=== PATIENT | female | born 1955 | race Caucasian/White ===

== ENCOUNTER 2017-11-02 09:18 | Inpatient (IN) | payer OTHER ==
[~2017-11-02] VITALS: Ht 165.1 cm; Wt 88.9 kg
--- NOTE | ~2017-11-02 | EKG ---
[address] [address] ELECTROCARDIOGRAM REPORT Name: EVELIN EDEN Room #: 351-P ADM IN M.R.#: [id number] Admission: 11/02/17 Attend Phys: William Fish MD Discharge: Date of : 51 Report #: [id number] THIS REPORT FOR: //name// [facility] ED Test Date: 2017-11-02 Test Time: 10:24:08 Pat Name: EVELIN EDEN Department: Room: [employer] Gender: F Senior Underwriter: LENNY : 1955 Requested By: Chelsea De La O Order Number: [id number] MD: Kin Rodriguez Measurements Intervals [place] Rate: 88 P: 11 VT: 143 QRS: -39 QRSD: 100 T: 0 QT: 397 QTc: 481 Interpretive Statements Sinus rhythm RSR' in V1 or V2, right VCD No previous ECG available for comparison Electronically Signed On 11-03-2017 10:12:56 CDT by Kin Rodriguez [email or web address] <ELECTRONICALLY SIGNED> By: Kin Rodriguez MD 11/03/17 1012 1024 [facility] MD EMIR Stallings
--- NOTE | ~2017-11-02 | EKG ---
[address] [email or web address] [address] ELECTROCARDIOGRAM REPORT Name: EVELIN EDEN Room #: 351-P ADM IN M.R.#: [id number] Admission: 11/02/17 Attend Phys: William Fish MD Discharge: Date of : 51 Report #: [id number] THIS REPORT FOR: //name// [facility] ED Test Date: 2017-11-02 Test Time: 10:23:21 Pat Name: EVELIN EDEN Department: Room: [facility] Gender: F Spool Winder: LENNY : 1955 Requested By: Chelsea De La O Order Number: [id number] MD: Kin Rodriguez Measurements Intervals [place] Rate: 88 P: 0 [place]: 71 QRS: -43 QRSD: 97 T: -37 QT: 396 QTc: 480 Interpretive Statements Sinus rhythm Short [place] interval Abnormal R-wave progression, late transition Nonspecific ST segment abnormalities No previous ECG available for comparison Electronically Signed On 11-03-2017 10:12:36 CDT by Kin Rodriguez [email or web address] <ELECTRONICALLY SIGNED> By: Kin Rodriguez MD 11/03/17 1012 1022 102 Kin Rodriguez MD /BARBARA
--- NOTE | ~2017-11-02 | HC ---
[facility] [place] [address] CONSULTATION Name: EVELIN EDEN Room #: 351-P ADM IN M.R.#: [id number] Admission: 11/02/17 Attend Phys: William Fish MD Discharge: Date of : 51 Report #: [id number] THIS REPORT FOR: //name// CC: FAM physician/PCP William Fish DATE OF SERVICE: 11/03/2017 ATTENDING PHYSICIAN: Dr. Fish. REASON FOR CONSULTATION: Gram-negative septicemia, complicated urinary tract source with obstructive uropathy due to renal stone. HISTORY OF PRESENT ILLNESS: Chart reviewed, the patient examined. This is a 62-year-old without significant medical history who was found markedly encephalopathic. The patient was walking in her front yard when she reported of a fall and some incontinence of bladder. Evaluation noted urinalysis with marked pyuria. Imaging studies showed obstructing x 7 mm UVJ stone with some moderate left ureteral ectasis and pelvocaliectasis. Blood cultures now with growth of gram-negative rods. She does have an elevated procalcitonin of 4.58 and her initial lactic acid was 1.2. She is markedly better today. She still has some residual pain. She described discomfort associated interestingly more right-sided, but that has markedly improved, perhaps she subsequently passed the stone. She was empirically started on ceftriaxone and vancomycin and she was continued on ceftriaxone. ALLERGIES: None. CURRENT MEDICATIONS: Include ceftriaxone, enoxaparin, labetalol, amlodipine, allopurinol. PAST MEDICAL HISTORY: Otherwise, unremarkable. SOCIAL HISTORY: Former excess ethanol. She does smoke 2 packs a day, [id number] history. No illicit drug use. FAMILY HISTORY: Noncontributory. REVIEW OF SYSTEMS: As above. Denies any significant pulmonary-related complaints at this point. PHYSICAL EXAMINATION: GENERAL: She appears fairly well nourished, mild to moderate distress. VITAL SIGNS: Temperature 97.7 with a T-max of 100.8, pulse 92, respirations 22, blood pressure 154/95. SKIN: Warm, dry, no rashes. [facility] [address] [place] [address] CONSULTATION Name: EVELIN EDEN Room #: 351-P [facility] IN M.R.#: [id number] Admission: 11/02/17 Attend Phys: William Fish MD Discharge: Date of : 51 Report #: [id number] HEENT: Unremarkable. NECK: Supple. LUNGS: Generally clear to auscultation. Somewhat diminished. HEART: Regular. Borderline tachycardic. ABDOMEN: Obese, soft, slightly distended initially, no peritoneal signs. I do not appreciate any CVA tenderness. GENITOURINARY AND RECTAL: Deferred. LABORATORY DATA: Initial electrolytes, sodium 138, potassium 3.3, chloride 103, bicarbonate is 24, anion gap of 11, BUN and creatinine 29 and 1.9, glucose of 169, repeat this morning creatinine of 1.5. Lactic acid 1.2 initially. TSH of 1.198. CBC: White count of 25.9 initially, H and H 12.7 and 38.0, platelets 280, repeat was white count of 18.3. Blood culture with growth of gram-negative juan a. Urine culture is pending. CT of the pelvis as described above, a 5.5 x 7 mm obstructing left UVJ stone, anterior superior bladder wall thickening. There is some diverticulosis without evidence of diverticulitis. ASSESSMENT AND PLAN: Gram-negative septicemia in the setting of complicated urinary tract infection due to obstructive uropathy and a stone. At this point, symptomatically she has improved. It is not clear whether she has passed the stone or not as well as elevated white count, which may not be surprising. We will give a single dose of gentamicin pending the results of the identification of the gram-negative. I would suspect the urine culture will have similar. Note that repeat imaging is pending and may need Urology evaluation. <ELECTRONICALLY SIGNED> By: Deo Mendez MD 11/03/17 1711 0920 [id number] Deo Mendez MD /nt
[2017-11-02 09:18] VITALS: BP 145/84
[2017-11-02] MEDS ORDERED: GABAPENTIN 100100 MG PO (09:46)
[2017-11-02 10:04] LABS: HEMOGLOBIN 12.7 gm/dL (12.0-15.0); MCH 31.2 pg (26.0-34.0); MCHC 33.5 g/dL (28.0-37.0); MCV 93.2 fL (80.0-100.0); PLATELET COUNT 280 thou/uL (150-400); RBC 4.08 mil/uL (4.20-5.00); RDW 13.7 % (10.5-14.5); WBC 25.9 thou/uL (4.0-11.0)
[2017-11-02 10:06] LABS: ANION GAP 11 mmol/L (7-16); BUN 29 mg/dL (7-18); CALCIUM 9.5 mg/dL (8.5-10.1); CHLORIDE 103 mmol/L (98-107); CO2 24 mmol/L (21-32); CREATININE 1.9 mg/dL (0.6-1.0); GLUCOSE 169 mg/dL (74-106); POTASSIUM 3.3 mmol/L (3.5-5.1); SODIUM 138 mmol/L (136-145)
[2017-11-02 10:14] LABS: ALBUMIN 2.7 g/dL (3.4-5.0); SGOT 34 U/L (15-37); SGPT 28 U/L (30-65); TOTAL BILIRUBIN 0.4 mg/dL (<0.1-1.0); TOTAL PROTEIN 7.7 g/dL (6.4-8.2); TROPONIN-I <0.06 ng/mL (<0.06)
[2017-11-02 11:17] LABS: ABSOLUTE NEUTROPHILS 23.1 thou/uL (1.4-8.2)
[2017-11-02 11:49] LABS: URINE BILIRUBIN NEGATIVE (Negative); URINE BLOOD 2+ (Negative); URINE COLOR YELLOW; URINE GLUCOSE-RANDOM* NEGATIVE (Negative); URINE KETONES NEGATIVE (Negative); URINE NITRITE-REFLEX NEGATIVE (Negative); URINE PROTEIN (DIPSTICK) 2+ (Negative); URINE SPECIFIC GRAVITY 1.025 (1.005-1.035); URINE UROBILINOGEN 0.2 E.U./dl (0.2-1.0)
[2017-11-02 11:51] LABS: URINE CLARITY CLOUDY; URINE LEUKOCYTES-REFLEX 1+ (Negative)
[2017-11-02 12:01] LABS: AMP/METHAMP Negative (Negative); BARBITURATES Negative (Negative); BENZODIAZEPINES Negative (Negative); COCAINE Negative (Negative); METHADONE Negative (Negative); OPIATES Negative (Negative); PCP Negative (Negative)
[2017-11-02 12:21] LABS: SQUAMOUS 4-10 Moderate /LPF (0-3)
[2017-11-02 12:22] LABS: BACTERIA-REFLEX >30 Many /HPF (None Seen); CASTS None Seen /LPF (None Seen); CRYSTALS None Seen /LPF (None Seen); URINE RBC 0-2 Rare /HPF (0-2); URINE WBC-REFLEX >25 Many /HPF (0-5)
[2017-11-02 14:58] VITALS: BP 194/91
[2017-11-02 16:09] LABS: ALBUMIN 2.9 g/dL (3.4-5.0); TOTAL PROTEIN 6.9 g/dL (6.4-8.2)
[2017-11-02 18:22] VITALS: BP 186/92
[2017-11-02 18:28] VITALS: BP 197/109
[2017-11-02 19:10] VITALS: BP 192/106
[2017-11-02 23:59] VITALS: BP 157/75
[2017-11-03 04:20] VITALS: BP 169/76
[2017-11-03 06:07] LABS: HEMATOCRIT 37.7 % (37.0-47.0); HEMOGLOBIN 12.8 gm/dL (12.0-15.0); MCH 31.3 pg (26.0-34.0); MCHC 33.9 g/dL (28.0-37.0); MCV 92.5 fL (80.0-100.0); RBC 4.08 mil/uL (4.20-5.00); RDW 13.4 % (10.5-14.5); WBC 18.3 thou/uL (4.0-11.0)
[2017-11-03 06:24] LABS: CREATININE 1.5 mg/dL (0.6-1.0); MAGNESIUM 1.5 mg/dL (1.8-2.4)
[2017-11-03 08:00] VITALS: BP 154/95
[2017-11-03 12:00] VITALS: BP 138/78
[2017-11-03 16:00] VITALS: BP 149/87
[2017-11-03 19:40] VITALS: BP 163/97
[2017-11-04 05:27] VITALS: BP 149/82
[2017-11-04 06:32] LABS: HEMATOCRIT 37.9 % (37.0-47.0); HEMOGLOBIN 12.6 gm/dL (12.0-15.0); MCH 30.9 pg (26.0-34.0); MCHC 33.2 g/dL (28.0-37.0); MCV 93.2 fL (80.0-100.0); RBC 4.06 mil/uL (4.20-5.00); RDW 13.7 % (10.5-14.5); WBC 12.4 thou/uL (4.0-11.0)
[2017-11-04 06:43] LABS: CALCIUM 9.2 mg/dL (8.5-10.1); CREATININE 1.2 mg/dL (0.6-1.0); MAGNESIUM 1.8 mg/dL (1.8-2.4); POTASSIUM 3.6 mmol/L (3.5-5.1)
[2017-11-04 07:51] VITALS: BP 132/90
[2017-11-04 12:12] VITALS: BP 155/92
[2017-11-04 15:41] VITALS: BP 154/97
[2017-11-04 19:42] VITALS: BP 135/79
[2017-11-05 05:54] LABS: HEMATOCRIT 37.9 % (37.0-47.0); HEMOGLOBIN 12.7 gm/dL (12.0-15.0); MCHC 33.6 g/dL (28.0-37.0); MCV 92.2 fL (80.0-100.0); RBC 4.11 mil/uL (4.20-5.00); RDW 13.5 % (10.5-14.5); WBC 10.4 thou/uL (4.0-11.0)
[2017-11-05 06:16] LABS: CALCIUM 9.2 mg/dL (8.5-10.1); CREATININE 1.3 mg/dL (0.6-1.0); MAGNESIUM 1.7 mg/dL (1.8-2.4)
[2017-11-05 08:38] VITALS: BP 158/97
[2017-11-05] MEDS ORDERED: CEFUROXIME500 MG PO (09:43)
[2017-11-05] MEDS ORDERED: AMLODIPINE BESY10 MG PO (09:43)
[2017-11-05] MEDS ORDERED: MIRALAX17 GM PO (09:44)
[2017-11-05 10:23] VITALS: BP 158/97
== END 2017-11-05 11:33 | disposition home or self-care (01) | DRG 871 ==
LOC: ER 09:18 → EROBS 14:28 → 3W 14:28
PROVIDERS: Internal Medicine; Student in an Organized Health Care Education/Training Program
DX: A41.50 Gram-negative sepsis, unspecified (principal); G93.40 Encephalopathy, unspecified; N17.9 Acute kidney failure, unspecified; M62.82 Rhabdomyolysis; E46 Unspecified protein-calorie malnutrition; N12 Tubulo-interstitial nephritis, not specified as acute or chronic; N20.2 Calculus of kidney with calculus of ureter; N18.9 Chronic kidney disease, unspecified; F17.210 Nicotine dependence, cigarettes, uncomplicated; Z68.32 Body mass index [BMI] 32.0-32.9, adult; Z79.899 Other long term (current) drug therapy
CPT/HCPCS: 10879